=== PATIENT | female | born 1990 | race Two or more races ===

== ENCOUNTER 2025-05-10 09:46 | Emergency (ER) | payer BC, OTHER ==
[~2025-05-10] VITALS: Ht 162.6 cm; Wt 70.4 kg
--- NOTE | 2025-05-10 10:14 | ED.PDOC ---
GI ASSESSMENT HPI Comments Patient is a 35-year-old A5 female with past medical history of anxiety, depression, insomnia, mood disorder, who comes in due to abdominal pain. According to the patient, last night she started experiencing a cramping abdominal pain which she localized to the right upper quadrant which eventually spread to involve entire abdomen, pain eventually worsened to 10/10 in intensity and lasted for about 30 minutes, without any exacerbating or relieving factors and associated with nausea, eventually the pain subsided currently patient still notes some mid abdominal soreness which she rates 4/10 in intensity. On review of systems patient is complaining of productive cough. Denies having similar symptoms in the past. Minimal to no rebound tenderness. Chief Complaint: Abdominal Pain Time Seen by MD: 09:45 Allergies: Coded Allergies: NO KNOWN ALLERGIES (Unverified , 05/10/25) Mode of Arrival: Ambulatory Past Medical History Past Medical History (Contd): anxiety, depression, insomnia, mood disorder Surgical History (Cont'd) Denies Family History Family History (Other): Family history of breast cancer in grandmother at the age of 60 Social History Smoker: Non-Smoker Alcohol: Occasionally (Last drink 3 days ago) Drugs: Denies Drug Use Lives In: Home Constitutional: denies: chills, diaphoresis, fatigue, fever, malaise, sweats, weakness, others EENTM: denies: blurred vision, double vision, ear bleeding, ear discharge, ear drainage, ear pain, ear ringing, eye pain, eye redness, hearing loss, mouth pain, mouth swelling, nasal discharge, nose bleeding, nose congestion, nose pain, photophobia, tearing, throat pain, throat swelling, voice changes, others Respiratory: reports: cough; denies: hemoptysis, orthopnea, SOB at rest, shortness of breath, SOB with excertion, stridor, wheezing, others Cardiovascular: denies: chest pain, dizzy spells, diaphoresis, Dyspnea on exertion, edema, irregular heart beat, left arm pain, lightheadedness, palpitations, PND, syncope, others Gastrointestinal: denies: abdomen distended, abdominal pain, blood streaked bowels, constipated, diarrhea, dysphagia, difficulty swallowing, hematemesis, melena, nausea, poor appetite, poor fluid intake, rectal bleeding, rectal pain, vomiting, others Genitourinary: denies: abnormal vagina bleeding, burning, dyspareunia, dysuria, flank pain, frequency, hematuria, incontinence, pain, , vagina discharge, urgency, others Neurological: denies: dizziness, fainting, headache, left sided numbness, left sided weakness, numbness, paresthesia, pre-existing deficit, right sided numbness, right sided weakness, seizure, speech problems, tingling, tremors, weakness, others Musculoskeletal: denies: back pain, gout, joint pain, joint swelling, muscle pain, muscle stiffness, neck pain, others Integumetry: denies: bruises, change in color, change in hair/nails, dryness, laceration, lesions, lumps, rash, wounds, others Allergic/Immunocompromised: denies: Difficulty Healing, Frequent Infections, Hives, Itching, others Hematologic/Lymphatic: denies: anemia, blood clots, easy bleeding, easy bruising, swollen glands, others Endocrine: denies: excessive hunger, excessive sweating, excessive thirst, excessive urination, flushing, intolerance to cold, intolerance to heat, unexplained weight gain, unexplained weight loss, others Psychiatric: denies: anxiety, bipolar disorder, depression, hopeless, panic disorder, schizophrenia, sleepless, suicidal, others Physical Exam General Appearance: No Apparent Distress, None, Normal HEENT: Normal ENT Inspection, PERRL/EOMI Neck: Full Range of Motion, Non-Tender, Normal, Normal Inspection Respiratory: Lungs Clear, No Accessory Muscle Use, No Respiratory Distress, Normal Breath Sounds Cardiovascular: No Edema, No JVD, No Murmur, No Gallop, Normal Peripheral Pulses, Regular Rate/Rhythm Breast Exam: Deferred Gastrointestinal: Diffuse, Rebound, Tenderness Genitalia: Deferred Pelvic: Deferred Rectal: Rectal Exam not done Extremities: No calf tenderness, Normal inspection, Normal range of motion, Non-tender, No pedal edema Neurologic: Alert, No Motor Deficits, Normal Mood, No Sensory Deficits Cerebellar Function: Normal Reflexes: NOT DONE Skin: Dry, None, Normal Color Peripheral Pulses: 2+ dorsalis pedis (R), 2+ dorsalis pedis (L) Lymphatic: NOT DONE Was a procedure done? Was a procedure done?: No GI differential Dx Differential Diagnosis: Appendicitis, Incomplete , Gastroenteritis, Pancreatitis X-Ray, Labs, Meds, VS Vital Signs Date Time Temp Pulse Resp B/P (MAP) Pulse Ox O2 Delivery O2 Flow Rate FiO2 05/10/25 14:43 98.9 83 15 125/53 (77) 100 98.9 05/10/25 10:28 104 17 97 Room Air 05/10/25 10:28 99.0 104 17 134/59 (84) 100 99.0 05/10/25 09:49 97.7 113 18 122/81 97 97.7 Lab Test 05/10/25 10:21 05/10/25 10:17 Range/Units White Blood Count 6.6 4.4-10.8 10^3/uL Red Blood Count 4.60 4.0-5.20 10^6/uL Hemoglobin 13.8 12.2-16.2 g/dL Hematocrit 40.6 36.0-46.0 % Mean Corpuscular Volume 88.2 80.0-100.0 fL Mean Corpuscular Hemoglobin 29.9 28.0-32.0 pg Mean Corpuscular Hemoglobin Concent 34.0 32.0-36.0 g/dL Red Cell Distribution Width 13.9 11.8-14.3 % Platelet Count 282 140-450 10^3/uL Mean Platelet Volume 8.0 6.9-10.8 fL Neutrophils (%) (Auto) 61.8 37.0-80.0 % Lymphocytes (%) (Auto) 23.2 10.0-50.0 % Monocytes (%) (Auto) 6.1 0.0-12.0 % Eosinophils (%) (Auto) 8.1 H 0.0-7.0 % Basophils (%) (Auto) 0.8 0.0-2.0 % Neutrophils # (Auto) 4.1 1.6-8.6 10 ^3/uL Lymphocytes # (Auto) 1.5 0.4-5.4 10 ^3/uL Monocytes # (Auto) 0.4 0-1.3 10 ^3/uL Eosinophils # (Auto) 0.5 0-0.8 10 ^3/uL Basophils # (Auto) 0.1 0-0.2 10 ^3/uL Nucleated Red Blood Cells 0.2 % Sodium Level 141 136-145 mmol/L Potassium Level 4.1 3.5-5.1 mmol/L Chloride Level 104 98-107 mmol/L Carbon Dioxide Level 27 20-31 mmol/L Anion Gap 10 5-15 Blood Urea Nitrogen 8 L 9-23 mg/dL Creatinine 0.71 0.550-1.02 mg/dL Glomerular Filtration Rate Calc 114 >90 mL/min BUN/Creatinine Ratio 11.3 10.0-20.0 Serum Glucose 95 74-106 mg/dL Calcium Level 9.8 8.7-10.4 mg/dL Lipase 35 12-53 U/L Urine Test Negative Negative Current Medications Medications (Trade) Dose Ordered Sig/Kathy Route Start Time Stop Time Status Last Admin Ketorolac Tromethamine (Toradol Injection) 60 mg ONCE ONCE IM 05/10/25 12:00 05/10/25 12:01 DC 05/10/25 12:09 Ondansetron HCl (Zofran Po) 4 mg ONCE ONCE PO 05/10/25 12:00 05/10/25 12:01 DC 05/10/25 12:09 Time of 1ST Reevaluation: 10:50 Reevaluation 1ST: Unchanged Time of 2ND Reevaluation: 11:45 Reevaluation 2ND: Improved Patient Education/Counseling: Diagnosis, Treatment, Prognosis, Need For Follow Up Family Education/Counseling: No Family Present SEPSIS Sepsis Screen Date sepsis recognized/suspect: May 10, 2025 Time Sepsis recognized/suspect: 950 Recent Procedure: No On Antibiotic Therapy: No Respiratory Rate >20: No Heart Rate >90: Yes Temp<36 C (96.8 F) or >38.3 C: No SBP <90 or MAP <65 mmHG: No New Acute Mental Status Change: No Is the patient on CPAP, BIPAP,: No Physician Orders Ct Ab Pel Wo Con-No Oral Or Iv (05/10/25 10:07) Vital Signs Date Time Temp Pulse Resp B/P (MAP) Pulse Ox O2 Delivery O2 Flow Rate FiO2 05/10/25 14:43 98.9 83 15 125/53 (77) 100 98.9 05/10/25 10:28 104 17 97 Room Air 05/10/25 10:28 99.0 104 17 134/59 (84) 100 99.0 05/10/25 09:49 97.7 113 18 122/81 97 97.7 Laboratory Tests Test 05/10/25 10:21 White Blood Count 6.6 10^3/uL (4.4-10.8) Medications Medications Dose Ordered Sig/Kathy Route Start Time Stop Time Status Last Admin Dose Admin Ketorolac Tromethamine 60 mg ONCE ONCE IM 05/10/25 12:00 05/10/25 12:01 DC 05/10/25 12:09 Ondansetron HCl 4 mg ONCE ONCE PO 05/10/25 12:00 05/10/25 12:01 DC 05/10/25 12:09 Departure 1 Departure Time of Disposition: 12:30 Impression: Primary Impression: Appendicitis Qualified Codes: K37 - Unspecified appendicitis Additional Impressions: Cholecystitis Acute pancreatitis Qualified Codes: K85.90 - Acute pancreatitis without necrosis or infection, unspecified Gastritis Disposition: HOME / SELF CARE / HOMELESS Condition: Fair Comments Patient was instructed to come back to the ER if abdominal pain recurs, or if she suffers fever, chills, worsening abdominal pain. Patient was also recommended to see General surgery in the outpatient clinic for possible cholecystectomy. Patient demonstrated understanding, at the time of discharge patient had stable vital signs abdominal pain was controlled inpatient stated she felt ready to go home. Critical Care Note Critical Care Time?: No Stability Stability form required: JJ Layne RESIDENT May 10, 2025 10:14
[2025-05-10 10:51] LABS: Hematocrit 40.6 % (36.0-46.0); Hemoglobin 13.8 g/dL (12.2-16.2); Mean Corpuscular Hemoglobin 29.9 pg (28.0-32.0); Mean Corpuscular Volume 88.2 fL (80.0-100.0); Nucleated Red Blood Cells % 0.2 %
[2025-05-10 10:58] LABS: Chloride 104 mmol/L (98-107); Potassium 4.1 mmol/L (3.5-5.1); Sodium 141 mmol/L (136-145)
[2025-05-10 10:59] LABS: Anion Gap 10 (5-15); Carbon Dioxide 27 mmol/L (20-31)
[2025-05-10 11:00] LABS: Calcium 9.8 mg/dL (8.7-10.4)
[2025-05-10 11:04] LABS: Glucose 95 mg/dL (74-106)
[2025-05-10 11:05] LABS: BUN/Creatinine Ratio 11.3 (10.0-20.0); Blood Urea Nitrogen 8 mg/dL (9-23)
--- NOTE | 2025-05-10 11:43 | DVH ---
CLINICAL HISTORY: mid abdominal/RUQ pain TECHNIQUE: CT of the abdomen and pelvis was performed without IV contrast. This exam was performed according to our departmental dose optimization program. Up-to-date CT equipment and radiation dose reduction techniques are utilized as appropriate. CTDI 8.8 DLP 456 COMPARISON: None FINDINGS: Abdomen/Pelvis: The spleen, pancreas, adrenal glands, kidneys, liver, and uterus are grossly unremarkable. There are gallstones. The bladder is not well distended therefore not well evaluated. The abdominal aorta is normal in course and caliber. There are no significant atherosclerotic calcifications. There is no free intraperitoneal air or fluid. There is no enlarged abdominal pelvic lymph node. There is no bowel wall thickening or dilatation. The appendix is normal. Other: The imaged lower thorax is unremarkable. No acute osseous abnormality is evident. Impression: No acute noncontrast CT abnormality in the abdomen/pelvis. Cholelithiasis.
[2025-05-10] MEDS: KETOROLAC TROMETH 60MG/2ML VIAL IM ONE (12:09)
[2025-05-10] MEDS: ONDANSETRON ODT 4 MG TAB PO ONE (12:09)
[2025-05-10 14:43] VITALS: BP 125/53; PULSE 83; RESP 15; TEMP 98.9; O2SAT 100
== END 2025-05-10 14:46 | disposition home or self-care (01) ==
LOC: ER 09:46
DX: K37 Unspecified appendicitis (principal); K80.10 Calculus of gallbladder with chronic cholecystitis without obstruction; K85.90 Acute pancreatitis without necrosis or infection, unspecified; K29.70 Gastritis, unspecified, without bleeding; F41.9 Anxiety disorder, unspecified; F32.A Depression, unspecified; F10.90 Alcohol use, unspecified, uncomplicated
CPT/HCPCS: 36415; 74176; 80048; 81025; 83690; 85025; 96372; 99285; J1885; Q0162

== ENCOUNTER 2025-05-18 03:38 | Emergency (ER) | payer BC ==
[~2025-05-18] VITALS: Ht 162.6 cm; Wt 70.0 kg
[2025-05-18 03:53] VITALS: BP 128/85; PULSE 84; RESP 18; TEMP 99.2; O2SAT 97
[2025-05-18] MEDS ORDERED: AZIT-43 PO (04:00)
[2025-05-18] MEDS ORDERED: PRED20TA2 PO (04:00)
[2025-05-18] MEDS ORDERED: ALBUAER3 IN (04:00)
--- NOTE | 2025-05-18 04:00 | ED.PDOC ---
SOB-HPI HPI Comments 35-year-old female presents to ER with complaints of cough x1 week. Patient reports she has been experiencing a dry cough x1 week with associated congestion, runny nose and sore throat x 2 days. She rates her current sore throat pain a 5/10 and reports use of [id number]-zerdbor DayQuil/NyQuil without relief. States that she does experience intermittent episodes of shortness of breath during coughing episodes while "coughing hard", denying any shortness of breath at rest. Patient presents to ER ambulatory on arrival, with steady gait, in no distress with vitals stable. Denies fever, body aches, chills, night sweats, fatigue, chest pain, hemoptysis, headache, known exposure to sick contacts or any further symptoms/complaints Chief Complaint: Cough Time Seen by MD: 03:42 Primary Care Provider: UNKNOWN Reviewed notes: Nurses Notes, Medications, Allergies Information Source: Patient Mode of Arrival: Ambulatory Past Medical History PAST MEDICAL HISTORY: Denies Surgical History: Denies all surgeries SENIOR GIS ANALYST History: No Pertinent SENIOR GIS ANALYST History Family History Family History (Other): Family history of breast cancer in grandmother at the age of 60 Social History Smoker: Non-Smoker Alcohol: Occasionally Drugs: Denies Drug Use Lives In: Home Constitutional: denies: chills, diaphoresis, fatigue, fever, malaise, sweats, weakness, others EENTM: reports: others (As stated in HPI) Respiratory: reports: others (As stated in HPI) Cardiovascular: denies: chest pain, dizzy spells, diaphoresis, Dyspnea on exertion, edema, irregular heart beat, left arm pain, lightheadedness, palpitations, PND, syncope, others Gastrointestinal: denies: abdomen distended, abdominal pain, blood streaked bowels, constipated, diarrhea, dysphagia, difficulty swallowing, hematemesis, melena, nausea, poor appetite, poor fluid intake, rectal bleeding, rectal pain, vomiting, others Genitourinary: denies: abnormal vagina bleeding, burning, dyspareunia, dysuria, flank pain, frequency, hematuria, incontinence, pain, , vagina discharge, urgency, others Neurological: denies: dizziness, fainting, headache, left sided numbness, left sided weakness, numbness, paresthesia, pre-existing deficit, right sided numbness, right sided weakness, seizure, speech problems, tingling, tremors, weakness, others Musculoskeletal: denies: back pain, gout, joint pain, joint swelling, muscle pain, muscle stiffness, neck pain, others Integumetry: denies: bruises, change in color, change in hair/nails, dryness, laceration, lesions, lumps, rash, wounds, others Allergic/Immunocompromised: denies: Difficulty Healing, Frequent Infections, Hives, Itching, others Hematologic/Lymphatic: denies: anemia, blood clots, easy bleeding, easy bruising, swollen glands, others Endocrine: denies: excessive hunger, excessive sweating, excessive thirst, excessive urination, flushing, intolerance to cold, intolerance to heat, unexplained weight gain, unexplained weight loss, others Psychiatric: denies: anxiety, bipolar disorder, depression, hopeless, panic disorder, schizophrenia, sleepless, suicidal, others Physical Exam General Appearance: No Apparent Distress HEENT: Normal ENT Inspection, PERRL/EOMI, Pharynx Normal, TMs Normal Neck: Full Range of Motion, Non-Tender, Normal Respiratory: Chest Non-Tender, Lungs Clear, No Accessory Muscle Use, No Respiratory Distress, Normal Breath Sounds Cardiovascular: No Murmur, No Gallop, Regular Rate/Rhythm Breast Exam: Deferred Gastrointestinal: NOT DONE Genitalia: Deferred Pelvic: Deferred Rectal: Deferred Extremities: Normal capillary refill, Normal range of motion Neurologic: Alert, No Motor Deficits, Normal Affect, Normal Mood, No Sensory Deficits Cerebellar Function: Normal Reflexes: Normal Skin: Dry, Normal Color, Warm Peripheral Pulses: 2+ Radial (R), 2+ Radial (L), 2+ Brachial (R), 2+ Brachial (L) Lymphatic: No Adenopathy Was a procedure done? Was a procedure done?: No Sedation Sedation?: No Differential Dx Differential Diagnosis: Pneumonia, Pulmonary Embolism, Respiratory Distress, Sinusitis, Pharyngitis X-Ray, Labs, Meds, VS Vital Signs Date Time Temp Pulse Resp B/P (MAP) Pulse Ox O2 Delivery O2 Flow Rate FiO2 05/18/25 03:53 Room Air* 0 21 05/18/25 03:53 99.2 84 18 128/85 (99) 97 99.2 05/18/25 03:46 99.2 84 18 128/85 97 99.2 Solu-Medrol 125 mg IM ordered Patient well appearing, tolerating p.o. intake well, vitals stable and in no distress during ER visit/prior to discharge Advised to drink plenty of fluids Advised to follow up with PCP in 1-2 days Patient verbalized understanding and agreeable with current plan of care Advised to return to ER immediately if symptoms worsen Time of 1ST Reevaluation: 03:42 Reevaluation 1ST: N/A Patient Education/Counseling: Diagnosis, Treatment, Prognosis, Need For Follow Up Family Education/Counseling: No Family Present SEPSIS Sepsis Screen Date sepsis recognized/suspect: May 18, 2025 Time Sepsis recognized/suspect: 348 Recent Procedure: No On Antibiotic Therapy: No Respiratory Rate >20: No Heart Rate >90: No Temp<36 C (96.8 F) or >38.3 C: No SBP <90 or MAP <65 mmHG: No New Acute Mental Status Change: No Is the patient on CPAP, BIPAP,: No Physician Orders Methylprednisolone Sod Succ (Solu Medrol (05/18/25 04:00) Vital Signs Date Time Temp Pulse Resp B/P (MAP) Pulse Ox O2 Delivery O2 Flow Rate FiO2 05/18/25 03:53 Room Air* 0 21 05/18/25 03:53 99.2 84 18 128/85 (99) 97 99.2 05/18/25 03:46 99.2 84 18 128/85 97 99.2 Departure 1 Departure Time of Disposition: 03:58 Impression: Primary Impression: Upper respiratory infection Qualified Codes: J06.9 - Acute upper respiratory infection, unspecified Disposition: 01 HOME / SELF CARE / HOMELESS Condition: Stable e-Prescriptions Albuterol Sulfate (VENTOLIN MDI) 90 Mcg Ih 2 PUFF IN Q6HPRN, #1 INH 0 Refills Prov: STEVIE GREENE 05/18/25 Prednisone (Prednisone) 20 Mg Tab 20 MG PO BID for 5 Days, #10 TAB 0 Refills Prov: STEVIE GREENE 05/18/25 Azithromycin (Azithromycin) 250 Mg Tab 250 MG PO DAILY MDD 500 for 5 Days, #6 TAB 0 Refills 2 TABLETS ORALLY ON DAY ONE, THEN 1 TABLET ORALLY DAILY FOR 4 DAYS Prov: STEVIE GREENE 05/18/25 Discharged With: Self Critical Care Note Critical Care Time?: No Stability Stability form required: No Heart Score Heart Score: Heart Score Response (Comments) Value History N/A 0 EKG N/A 0 Age N/A 0 Risk Factors N/A 0 Troponin N/A 0 Total 0 STEVIE GREENE May 18, 2025 04:00
[2025-05-18] MEDS: methylPREDNISolone SOD SUCC 125 MG/2 ML VL IM ONE (04:08)
== END 2025-05-18 04:10 | disposition home or self-care (01) ==
LOC: ER 03:38
DX: J06.9 Acute upper respiratory infection, unspecified (principal); F10.90 Alcohol use, unspecified, uncomplicated
CPT/HCPCS: 96372; 99283; J2919